=== PATIENT | male | born 1935 | race Caucasian/White ===

== ENCOUNTER → 2019-01-06 | Emergency (ER) | payer MEDICARE, OTHER ==
[~2019-01-06] MED LIST: CHOL10005 PO; GABA-549 PO; HYDR-385 PO; MELA5TAB3 PO; PANT40TA65 PO; ROPI3TAB18 PO; SODI650T7 PO; TRAM-420 PO; WARF5TAB23 PO; oxyCODON/ACET (*)5/325MG (CII) 1 TAB TAB PO ONE
--- NOTE | 2019-01-06 10:25 | ER Report ---
History and Physical Time Seen By MD: 10:25 HPI/ROS CHIEF COMPLAINT: Right posterior rib pain HISTORY OF PRESENT ILLNESS: Patient is an 83-year-old male here with complaints of posterior right-sided rib pain status post fall on Tuesday. Patient was concerned because pain has not been improving. Patient also reports pain with taking a deep breath below the right scapular border. Patient denies further injuries at this time. Patient does have a history of multiple fractures and surgeries to the spine. Patient is hemodynamically stable at time of evaluation. REVIEW OF SYSTEMS: Constitutional: No fever, no chills. Eyes: No discharge. ENT: No sore throat. Cardiovascular: No chest pain, no palpitations. Respiratory: No cough, no shortness of breath. Gastrointestinal: No abdominal pain, no vomiting. Genitourinary: No hematuria. Musculoskeletal: Right-sided posterior rib pain below scapular border Skin: No rashes. Neurological: No headache. Allergies: Coded Allergies: oxycodone (Verified Allergy, Intermediate, Itching, 01/06/19) Home Meds Active Scripts Tramadol Hcl (TRAMADOL HCL) 50 Mg Tablet, 50 MG PO Q6H PRN for PAIN, #20 TAB 0 Refills Prov:AMADOR CORDOVA DO 01/06/19 Constitutional Vital Sign - Last 24 Hours 01/06/19 01/06/19 01/06/19 01/06/19 10:00 10:01 10:15 10:30 Pulse ??? 87 79 B/P (MAP) 151/85 (107) 136/79 (98) Pulse Ox 85 92 01/06/19 01/06/19 10:55 11:00 B/P (MAP) 121/78 (92) 140/93 (109) Pulse Ox 91 Physical Exam General Appearance: The patient is alert, has no immediate need for airway protection and no signs of toxicity. Uncomfortable appearing Eyes: Pupils equal and round no pallor or injection. ENT, Mouth: Mucous membranes are moist. Respiratory: There are no retractions, lungs are clear to auscultation. Cardiovascular: Regular rate and rhythm. Gastrointestinal: Abdomen is soft and non tender, no masses, bowel sounds normal. Neurological: No focal neurological deficits Skin: Warm and dry, no rashes. Musculoskeletal: Neck is supple non tender.+ Tenderness on palpation of the right posterior ribs lower right scapula border Extremities are nontender, nonswollen and have full range of motion. DIFFERENTIAL DIAGNOSIS: After history and physical exam differential diagnosis was considered for fracture, contusion, dislocation Medical Decision Making Data Points Result Diagram: 01/06/19 1125 01/06/19 1125 Laboratory Hematology Test 01/06/19 11:25 Red Blood Count 4.81 M/uL (4.00-5.60) Mean Corpuscular Volume 86.6 fL (80.0-96.0) Mean Corpuscular Hemoglobin 28.1 pg (26.0-33.0) Mean Corpuscular Hemoglobin Concent 32.4 g/dL (32.0-36.0) Red Cell Distribution Width 14.6 % (11.5-14.5) Mean Platelet Volume 8.1 fL (7.2-11.1) Neutrophils (%) (Auto) 72.2 % (39.4-72.5) Lymphocytes (%) (Auto) 11.9 % (17.6-49.6) Monocytes (%) (Auto) 4.7 % (4.1-12.4) Eosinophils (%) (Auto) 10.5 % (0.4-6.7) Basophils (%) (Auto) 0.7 % (0.3-1.4) Nucleated RBC Relative Count (auto) 0.1 /100WBC Neutrophils # (Auto) 8.7 K/uL (2.0-7.4) Lymphocytes # (Auto) 1.4 K/uL (1.3-3.6) Monocytes # (Auto) 0.6 K/uL (0.3-1.0) Eosinophils # (Auto) 1.3 K/uL (0.0-0.5) Basophils # (Auto) 0.1 K/uL (0.0-0.1) Nucleated RBC Absolute Count (auto) 0.01 K/uL Peripheral Blood Smear Yes Y/N Prothrombin Time 13.5 seconds (12.0-14.4) Prothromb Time International Ratio 1.03 Activated Partial Thromboplast Time 30 seconds (23-35) Sodium Level 140 mmol/L (137-145) Potassium Level 5.0 mmol/L (3.5-5.0) Chloride Level 109 mmol/L (98-107) Carbon Dioxide Level 19 mmol/L (22-30) Blood Urea Nitrogen 24 mg/dl (9-21) Creatinine 2.20 mg/dl (0.66-1.25) Glomerular Filtration Rate Calc 28.9 Random Glucose 138 mg/dl (75-110) Calcium Level 9.8 mg/dl (8.4-10.2) Total Bilirubin 0.7 mg/dl (0.2-1.3) Aspartate Amino Transf (AST/SGOT) 27 U/L (0-35) Alanine Aminotransferase (ALT/SGPT) 27 U/L (0-56) Alkaline Phosphatase 190 U/L (0-126) Total Protein 7.8 g/dl (6.3-8.2) Albumin 4.1 g/dl (3.5-5.0) Chemistry Test 01/06/19 11:25 White Blood Count 12.0 k/uL (4.5-11.0) Red Blood Count 4.81 M/uL (4.00-5.60) Hemoglobin 13.5 g/dL (14.0-18.0) Hematocrit 41.6 % (42.0-52.0) Mean Corpuscular Volume 86.6 fL (80.0-96.0) Mean Corpuscular Hemoglobin 28.1 pg (26.0-33.0) Mean Corpuscular Hemoglobin Concent 32.4 g/dL (32.0-36.0) Red Cell Distribution Width 14.6 % (11.5-14.5) Platelet Count 459 K/uL (150-450) Mean Platelet Volume 8.1 fL (7.2-11.1) Neutrophils (%) (Auto) 72.2 % (39.4-72.5) Lymphocytes (%) (Auto) 11.9 % (17.6-49.6) Monocytes (%) (Auto) 4.7 % (4.1-12.4) Eosinophils (%) (Auto) 10.5 % (0.4-6.7) Basophils (%) (Auto) 0.7 % (0.3-1.4) Nucleated RBC Relative Count (auto) 0.1 /100WBC Neutrophils # (Auto) 8.7 K/uL (2.0-7.4) Lymphocytes # (Auto) 1.4 K/uL (1.3-3.6) Monocytes # (Auto) 0.6 K/uL (0.3-1.0) Eosinophils # (Auto) 1.3 K/uL (0.0-0.5) Basophils # (Auto) 0.1 K/uL (0.0-0.1) Nucleated RBC Absolute Count (auto) 0.01 K/uL Peripheral Blood Smear Yes Y/N Prothrombin Time 13.5 seconds (12.0-14.4) Prothromb Time International Ratio 1.03 Activated Partial Thromboplast Time 30 seconds (23-35) Glomerular Filtration Rate Calc 28.9 Calcium Level 9.8 mg/dl (8.4-10.2) Total Bilirubin 0.7 mg/dl (0.2-1.3) Aspartate Amino Transf (AST/SGOT) 27 U/L (0-35) Alanine Aminotransferase (ALT/SGPT) 27 U/L (0-56) Alkaline Phosphatase 190 U/L (0-126) Total Protein 7.8 g/dl (6.3-8.2) Albumin 4.1 g/dl (3.5-5.0) Coagulation Test 01/06/19 11:25 Prothrombin Time 13.5 seconds Prothromb Time International Ratio 1.03 Activated Partial Thromboplast Time 30 seconds EKG/Imaging Imaging PATIENT NAME: Polo Villarreal : 1935 MR: [id number] V: [id number] EXAM DATE: ORDERING PHYSICIAN: AMADOR CORDOVA TECHNOLOGIST: Location: [facility] Patient: Polo Villarreal : 1935 Visit/Account:[id number] Date of Sevice: 01/06/2019 CT abdomen and pelvis without contrast Indication: Fall. Comparison: None Available. Technique: Axial CT images are obtained through the abdomen and pelvis. Reformatted coronal and sagittal images were reviewed. IV contrast was not admin istered. One of the following dose optimization techniques was utilized in the performance of this exam: automated exposure control; adjustment of the mA and/or kV according to the patient's size; or use of an iterative reconstruction technique. Specific details can be referenced in the facility's radiology CT exam operational policy. Findings: Lower lung miramontes: Small right pleural effusion with minimal atelectasis. Otherwise clear. Evaluation of the solid organs of the abdomen is limited without IV contrast. Liver: No focal parenchymal abnormality of the liver. Biliary: Gallbladder appears unremarkable as well as the intra and extra hepatic biliary system. Pancreas: Diffuse fatty infiltration without focal abnormality. Spleen: Normal appearance. Adrenal glands: Unremarkable. Kidneys / retroperitoneum: The right kidney is not visualized. The left kidney does show 3 small stones in collecting system, largest measuring 3 mm. No hydronephrosis. The inferior aspect of the left kidney does show a 1.4 cm cyst. No other discrete lesion. Bowel / peritoneum / mesenteries: Sigmoid diverticula without pericolonic inflammation. The colon shows no other focal normality. The appendix is not definitely visualized. Small bowel shows no focal normality or obstruction. The stomach is unremarkable. No free air, free fluid, fluid collections or areas of inflammation. Lymph node assessment: No pathologic adenopathy identified. Pelvic structures: Prostate is enlarged and homogeneous. No focal normality. This does cause impression to the urinary bladder. The urinary bladder shows no other focal abnormality. The remaining pelvic structures visualized within normal limits. Vessels: Mild atherosclerotic calcifications seen throughout a nonaneurysmal abdominal aorta and branches. Musculoskeletal / Body wall: No acute or aggressive osseous abnormality. Postsurgical fusion changes to the thoracal lumbar spine without sequelae. There is diffuse degenerative changes. There is anterior spinal listhesis of L3 over L4 of 8 mm. Right hip arthroplasty without sequelae. Degenerative change seen in the left hip. The right medial pectineus muscle does show a small lipoma measuring 6.3 x 1.9 cm without any soft tissue nodule. IMPRESSION: 1. No acute intra-abdominal abnormality identified. No indication of traumatic injury. 2. Sigmoid diverticulosis without radiographic indication of diverticulitis. 3. Nonobstructing left renal calculi. The right kidney is not visualized. 4. Small right pleural effusion with minimal atelectasis. 5. Other chronic findings as above. FACILITY: [facility] PATIENT NAME: Polo Villarreal : 1935 MR: [id number] V: [id number] EXAM DATE: ORDERING PHYSICIAN: AMADOR CORDOVA TECHNOLOGIST: Location: [facility] Patient: Polo Villarreal : 1935 Visit/Account:[id number] Date of Sevice: 01/06/2019 CT chest without contrast Indication: Fall. Comparison: None available Technique: Axial CT images are obtained through the chest without administration of IV contrast. One of the following dose optimization techniques was utilized in the performance of this exam: Automated exposure control; adjustment of the mA and/or kV according to the patient's size; or use of an iterative reconstruction technique. Specific details can be referenced in the facility's radiology CT exam operational policy.Reformatted coronal and sagittal images were reviewed. Findings: Heart is normal size without pericardial effusion. Mild coronary artery calcifications. Aorta shows atherosclerotic calcific changes. The ascending aorta is upper limits normal size of 4 cm. No discrete aneurysm. The pulmonary arteries are grossly normal. There is no mediastinal hematoma and there is no pathologic mediastinal adenopathy seen. Lungs show small right pleural effusion with minimal atelectasis. No left effusion. Mild scarring seen in both lungs. No consolidations or pneumothorax. No discrete nodules or focal interstitial opacities. Airways are clear. The bony structures show no acute fractures. No discrete or displaced rib fractures. Vertebral bodies show no compressions. Prominent degenerative change seen in the lower thoracic spine. Postsurgical changes to the thoracal lumbar spine without sequelae. No aggressive bony lesions. The chest wall shows no enlarged axillary lymph nodes or masses. Limited views of the upper abdomen are unremarkable. IMPRESSION: 1. There is a small right pleural effusion with minimal atelectasis. No discrete rib fracture. No focal infiltrate. 2. Other chronic findings as above. ED Course/Re-evaluation ED Course Patient is an 83-year-old male with complaints of right posterior back and rib pain status post fall on Tuesday. Labs are unremarkable. CT imaging of the chest abdomen pelvis was completed due to patient's history of fall, prior history of surgical interventions in the back. No acute fractures were identified. Patient was identified to have atelectasis in the right lung so patient was educated regarding using incentive spirometer to avoid pneumonia d evelopment. Patient was given tramadol for analgesia. Patient was stable at time of discharge. Patient was also noted to have a creatinine of 2.2 and a history of a prior nephrectomy. There were no recent labs to compare to so patient was advised to drink plenty of water as he admitted to not keeping up with his fluid status. Patient was advised to follow-up with his PCP in the next 24-48 hours in order to compare and repeat labs. Return precautions were provided. Patient was stable at time of discharge. Decision to Disposition Date: Jan 06, 2019 Decision to Disposition Time: 13:02 Depart Departure Latest Vital Signs Vital Signs Date Time Temp Pulse Resp B/P (MAP) Pulse Ox O2 Delivery O2 Flow Rate FiO2 01/06/19 11:00 140/93 (109) 91 01/06/19 10:30 79 Impression: Primary Impression: Rib contusion Additional Impressions: Renal dysfunction ATELECTASIS Condition: Improved Disposition: HOME OR SELF-CARE New Scripts Tramadol Hcl (TRAMADOL HCL) 50 Mg Tablet 50 MG PO Q6H PRN for PAIN, #20 TAB 0 Refills Prov: AMADOR CORDOVA DO 01/06/19 Patient Instructions: Contusion in Adults (ED), Impaired Kidney Function (ED) Additional Instructions: Please drink plenty of water. Please avoid renal toxic medications including Advil, ibuprofen, naproxen, Aleve as these medications will worsen your kidney function. Please use your incenses from under as your shown here today. You need to follow-up in the next 24-48 hours with your family doctor in order to discuss your kidney function and compare to prior labs. Please return immediately if you develop worsening pain, difficulty breathing, chest pains, decreased urine output, dark urine, fevers. You may take tramadol 1 tablet every 6-8 hours as needed for breakthrough pain control. Problem Qualifiers AMADOR CORDOVA DO Jan 06, 2019 10:25
[2019-01-06 11:36] LABS: PLATELET COUNT, AUTOMATED 459 K/uL (150-450)
[2019-01-06 11:41] LABS: INR 1.03
--- NOTE | 2019-01-06 12:16 | RADIOLOGY IMAGING REPORT ---
FACILITY: [facility] [place] PATIENT NAME: Polo Villarreal : 1935 MR: [id number] V: [id number] EXAM DATE: ORDERING PHYSICIAN: AMADOR CORDOVA TECHNOLOGIST: Location: Patient: Polo Villarreal : 1935 Visit/Account:[id number] Date of Sevice: 01/06/2019 CT chest without contrast Indication: Fall. Comparison: None available Technique: Axial CT images are obtained through the chest without administration of IV contrast. One of the following dose optimization techniques was utilized in the performance of this exam: Autom ated exposure control; adjustment of the mA and/or kV according to the patient's size; or use of an i terative reconstruction technique. Specific details can be referenced in the facility's radiology C T exam operational policy.Reformatted coronal and sagittal images were reviewed. Findings: Heart is normal size without pericardial effusion. Mild coronary artery calcifications. Aorta shows a therosclerotic calcific changes. The ascending aorta is upper limits normal size of 4 cm. No discrete aneurysm. The pulmonary arteries are grossly normal. There is no mediastinal hematoma and there is no pathologic mediastinal adenopathy seen. Lungs show small right pleural effusion with minimal atelectasis. No left effusion. Mild scarring see n in both lungs. No consolidations or pneumothorax. No discrete nodules or focal interstitial opaciti es. Airways are clear. The bony structures show no acute fractures. No discrete or displaced rib fractures. Vertebral bodies show no compressions. Prominent degenerative change seen in the lower thoracic spine. Postsurgical c hanges to the thoracal lumbar spine without sequelae. No aggressive bony lesions. The chest wall show s no enlarged axillary lymph nodes or masses. Limited views of the upper abdomen are unremarkable. IMPRESSION: 1. There is a small right pleural effusion with minimal atelectasis. No discrete rib fracture. No foc al infiltrate. 2. Other chronic findings as above. Report Dictated By: Walter Glaser at 01/06/2019 12:03 PM Report E-Signed By: Walter Glaser at 01/06/2019 12:11 PM WSN:[id number]
--- NOTE | 2019-01-06 12:47 | RADIOLOGY IMAGING REPORT ---
FACILITY: [facility] [place] PATIENT NAME: Polo Villarreal : 1935 MR: [id number] V: [id number] EXAM DATE: ORDERING PHYSICIAN: AMADOR CORDOVA TECHNOLOGIST: Location: [facility] [place] Patient: Polo Villarreal : 1935 Visit/Account:[id number] Date of Sevice: 01/06/2019 CT abdomen and pelvis without contrast Indication: Fall. Comparison: None Available. Technique: Axial CT images are obtained through the abdomen and pelvis. Reformatted coronal and sagit mitzi images were reviewed. IV contrast was not administered. One of the following dose optimization techniques was utilized in the performance of this exam: auto mated exposure control; adjustment of the mA and/or kV according to the patient's size; or use of an iterative reconstruction technique. Specific details can be referenced in the facility's radiology C T exam operational policy. Findings: Lower lung miramontes: Small right pleural effusion with minimal atelectasis. Otherwise clear. Evaluation of the solid organs of the abdomen is limited without IV contrast. Liver: No focal parenchymal abnormality of the liver. Biliary: Gallbladder appears unremarkable as well as the intra and extra hepatic biliary system. Pancreas: Diffuse fatty infiltration without focal abnormality. Spleen: Normal appearance. Adrenal glands: Unremarkable. Kidneys / retroperitoneum: The right kidney is not visualized. The left kidney does show 3 small ston es in collecting system, largest measuring 3 mm. No hydronephrosis. The inferior aspect of the left k idney does show a 1.4 cm cyst. No other discrete lesion. Bowel / peritoneum / mesenteries: Sigmoid diverticula without pericolonic inflammation. The colon ashutosh ws no other focal normality. The appendix is not definitely visualized. Small bowel shows no focal no rmality or obstruction. The stomach is unremarkable. No free air, free fluid, fluid collections or areas of inflammation. Lymph node assessment: No pathologic adenopathy identified. Pelvic structures: Prostate is enlarged and homogeneous. No focal normality. This does cause impre ssion to the urinary bladder. The urinary bladder shows no other focal abnormality. The remaining pel jemal structures visualized within normal limits. Vessels: Mild atherosclerotic calcifications seen throughout a nonaneurysmal abdominal aorta and bran ches. Musculoskeletal / Body wall: No acute or aggressive osseous abnormality. Postsurgical fusion changes to the thoracal lumbar spine without sequelae. There is diffuse degenerative changes. There is anteri or spinal listhesis of L3 over L4 of 8 mm. Right hip arthroplasty without sequelae. Degenerative manning ge seen in the left hip. The right medial pectineus muscle does show a small lipoma measuring 6.3 x 1.9 cm without any soft ti ssue nodule. IMPRESSION: 1. No acute intra-abdominal abnormality identified. No indication of traumatic injury. 2. Sigmoid diverticulosis without radiographic indication of diverticulitis. 3. Nonobstructing left renal calculi. The right kidney is not visualized. 4. Small right pleural effusion with minimal atelectasis. 5. Other chronic findings as above. Report Dictated By: Walter Glaser at 01/06/2019 12:32 PM Report E-Signed By: Walter Glaser at 01/06/2019 12:42 PM WSN:[id number]
[2019-01-06 13:00] VITALS: BP 132/79
== END ==
LOC: ER 10:35
DX: R07.81 Pleurodynia (principal); N28.9 Disorder of kidney and ureter, unspecified; J98.11 Atelectasis; J90 Pleural effusion, not elsewhere classified
CPT/HCPCS: 71250; 74176; 85025; 85610; 85730; A9270; 82040; 82247; 82310; 82374; 82435; 82565; 82947; 84075; 84132; 84155; 84295; 84450; 84460; 84520; 99284

== ENCOUNTER 2019-02-12 20:09 | Observation (INO) | payer MEDICARE, OTHER ==
[~2019-02-12] VITALS: Ht 193 cm; Wt 119.3 kg
[~2019-02-12 20:09] MED LIST changes: -ASPI81TA94 PO; -GABA-488 PO
--- NOTE | 2019-02-12 20:16 | ER Report ---
History and Physical Time Seen By MD: 20:11 HPI/ROS CHIEF COMPLAINT: Possible stroke, weakness, confusion, slurred speech HISTORY OF PRESENT ILLNESS: This is an 83-year-old male. At home, his son noted that he was slurring his words and having some confusion. Last time the patient was normal was at about 1800 hrs. patient's speech has improved but is not quite at baseline now. The confusion seems to be better. He does have some right-sided rib pain from recent fall and contusion, and he has chronic pain in the right shoulder and right hip. Patient states that the right arm and right hip do seem to be heavier than usual and more difficulty moving them. He denies having any recent illness, cough, shortness of breath, fevers or chills. He did take one of his hydrocodone earlier today for his rib pain. He has been on warfarin but recently discontinued this at the recommendation of his primary care doctor. 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 He has been eating and drinking today but may be a little bit less intake. Denies any problems with urination but has had a little bit of loose stools today. Denies any abdominal pain. Denies any vomiting but has had occasional nausea. He denies headache, he is not dizzy but feels generally weak. He needs to use reading glasses but otherwise has no problems with his vision at this time. REVIEW OF SYSTEMS: As above. Allergies: Coded Allergies: oxycodone (Verified Allergy, Intermediate, Itching, 02/12/19) Home Meds Active Scripts Tramadol Hcl (TRAMADOL HCL) 50 Mg Tablet, 50 MG PO Q6H PRN for PAIN, #20 TAB 0 Refills Prov:AMADOR CORDOVA DO 01/06/19 Reported Medications Aspirin (ASPIRIN) 81 Mg Tab.chew, 81 MG PO QDAY, TAB.CHEW 02/12/19 Pantoprazole Sodium (PANTOPRAZOLE SODIUM) 40 Mg Tablet.dr, 40 MG PO QDAY, TAB.SR 01/06/19 Melatonin (MELATONIN) 5 Mg Tablet, 5 MG PO HS 01/06/19 Gabapentin (GABAPENTIN) 300 Mg Capsule, 200 MG PO BID, CAPSULE 01/06/19 Cholecalciferol (Vitamin D3) (VITAMIN D3) 1,000 Unit Tablet, 2000 UNIT PO DAILY, TAB 01/06/19 Sodium Bicarbonate (SODIUM BICARBONATE) 650 Mg Tablet, 1300 MG PO BID 01/06/19 Ropinirole Hcl (ROPINIROLE HCL) 3 Mg Tablet, 3 MG PO TID 01/06/19 Hydrocodone Bit/Acetaminophen (HYDROCODON-ACETAMINOPHEN 5-325) 1 Each Tablet, 1- 2 EACH PO Q4H PRN for PAIN, TAB 01/06/19 Discontinued Reported Medications Warfarin Sodium (WARFARIN SODIUM) 5 Mg Tablet, 5 MG PO QDAY, TAB 01/06/19 Reviewed Nurses Notes: Yes Hx Substance Use Disorder: No Hx Alcohol Use: No Constitutional Vital Sign - Last 24 Hours 02/12/19 02/12/19 02/12/19 02/12/19 20:12 20:30 20:34 20:34 Temp 97.9 Pulse 84 79 Resp 18 15 B/P (MAP) 146/99 122/75 (91) Pulse Ox 87 O2 Delivery Room Air O2 Flow Rate 2.0 02/12/19 02/12/19 02/12/19 02/12/19 20:39 20:44 20:49 20:54 Pulse 78 77 78 82 Resp 16 31 34 20 Pulse Ox 99 96 96 96 02/12/19 02/12/19 02/12/19 02/12/19 20:59 21:00 21:04 21:09 Pulse 76 77 75 Resp 24 44 19 B/P (MAP) 141/91 (108) Pulse Ox 97 96 95 02/12/19 02/12/19 02/12/19 02/12/19 21:14 21:19 21:24 21:29 Pulse 78 76 76 80 Resp 23 24 22 27 Pulse Ox 93 92 93 92 02/12/19 02/12/19 02/12/19 02/12/19 21:30 21:34 21:39 21:44 Pulse 73 71 74 Resp 22 24 28 B/P (MAP) 120/113 (115) Pulse Ox 91 92 94 02/12/19 02/12/19 02/12/19 02/12/19 21:49 21:54 21:59 22:49 Pulse 74 75 72 71 Resp 19 28 23 Pulse Ox 94 95 95 94 02/12/19 02/12/19 02/12/19 02/12/19 23:00 23:04 23:19 23:30 Pulse 70 70 B/P (MAP) 148/93 (111) 144/84 (104) Pulse Ox 93 95 02/12/19 02/12/19 02/13/19 02/13/19 23:35 23:50 00:00 00:05 Pulse 71 70 70 B/P (MAP) 145/101 (116) Pulse Ox 94 94 93 Intake and Output 02/12/19 02/12/19 02/13/19 15:02 23:02 07:02 Intake Total 1000 ml Balance 1000 ml Physical Exam General Appearance: The patient is alert. No immediate need for airway protection. No acute distress. Non-toxic in appearance. Eyes: Pupils are equal, round. Reactive to light. No pallor, injection or icterus. Extraocular movements are intact. Normal visual miramontes by direct confrontation. No nystagmus. ENT: Mucous membranes are a little dry. Normal oral mucosa. Posterior oropharynx is normal. Neck: Supple and non tender. No lymphadenopathy. Respiratory: Lungs are clear to auscultation. Cardiovascular: Regular rate and rhythm. No murmurs, gallops or rubs. Normal capillary refill. Has some edema bilateral lower extremities. Gastrointestinal: Abdomen is soft and non tender. Nondistended. Normal active bowel sounds. Neurological: Alert and oriented x3. Cranial nerves with eye exam as noted above, midline tongue, symmetric palate elevation, no facial weakness noted, normal facial sensation. He does have a little bit of slurring of his words but no aphasia. Extremities are difficult to evaluate. He feels like his right arm and right leg or heavy but he also has chronic problems with the right shoulder and right hip limiting mobility. He seems to be able to move his hand and wrist without major problems so he has history of injury was swelling to the right hand making this a little difficult for him. No deficits of sensation in the left arm and leg. Some decreased sensation in the right leg. He is unable to perform finger to nose or heel to easley with the right leg but can do so without major difficulty using the left arm and the left leg. Skin: Warm and dry. Musculoskeletal: Tenderness in the right ribs from recent contusion. Some pain in the right shoulder which is chronic. Some pain in the right hip which is chronic. I do not elicit any other pain at this time. No tenderness in palpation of the cervical, thoracic and lumbar spine. DIFFERENTIAL DIAGNOSIS: After history and physical exam, differential diagnosis was considered for patient with what appears to be stroke versus TIA. NIH stroke scale was done by myself and then by the neurologist utilizing the tele-stroke. By stroke scale scored and 8 although a lot of deficits can be explained by his chronic deficits in the right arm and right leg. I gave him 2 points for weakness right arm, 2 points for weakness right leg, 1 point for sensation right leg, 1 point for ataxia on the right side, and 1 point for dysarthria. The neurologist on Telestroke had improvement in these areas and felt his deficits were mainly related to pain. Concern at this point was mainly for TIA. Recommended workup in this direction. Patient would benefit from MRI b rain, CTA, and echocardiogram for further workup. Initial non-contrast head CT is negative. Medical Decision Making Data Points Result Diagram: 02/12/19203302/12/192033 Laboratory Hematology Test 02/12/19 20:34 White Blood Count 8.7 k/uL (4.5-11.0) Red Blood Count 4.93 M/uL (4.00-5.60) Hemoglobin 13.6 g/dL (14.0-18.0) L Hematocrit 40.9 % (42.0-52.0) L Mean Corpuscular Volume 83.0 fL (80.0-96.0) Mean Corpuscular Hemoglobin 27.5 pg (26.0-33.0) Mean Corpuscular Hemoglobin Concent 33.2 g/dL (32.0-36.0) Red Cell Distribution Width 15.1 % (11.5-14.5) H Platelet Count 424 K/uL (150-450) Mean Platelet Volume 8.0 fL (7.2-11.1) Neutrophils (%) (Auto) 62.7 % (39.4-72.5) Lymphocytes (%) (Auto) 20.5 % (17.6-49.6) Monocytes (%) (Auto) 7.7 % (4.1-12.4) Eosinophils (%) (Auto) 8.1 % (0.4-6.7) H Basophils (%) (Auto) 1.0 % (0.3-1.4) Nucleated RBC Relative Count (auto) 0.0 /100WBC Neutrophils # (Auto) 5.5 K/uL (2.0-7.4) Lymphocytes # (Auto) 1.8 K/uL (1.3-3.6) Monocytes # (Auto) 0.7 K/uL (0.3-1.0) Eosinophils # (Auto) 0.7 K/uL (0.0-0.5) H Basophils # (Auto) 0.1 K/uL (0.0-0.1) Nucleated RBC Absolute Count (auto) 0.00 K/uL Chemistry Test 02/12/19 20:34 Sodium Level 140 mmol/L (137-145) Potassium Level 4.3 mmol/L (3.5-5.0) Chloride Level 109 mmol/L (98-107) Carbon Dioxide Level 19 mmol/L (22-30) Blood Urea Nitrogen 35 mg/dl (9-21) Creatinine 2.60 mg/dl (0.66-1.25) Glomerular Filtration Rate Calc 23.8 Random Glucose 132 mg/dl (75-110) Calcium Level 9.7 mg/dl (8.4-10.2) Total Bilirubin 0.6 mg/dl (0.2-1.3) Aspartate Amino Transf (AST/SGOT) 25 U/L (0-35) Alanine Aminotransferase (ALT/SGPT) 24 U/L (0-56) Alkaline Phosphatase 169 U/L (0-126) Troponin I 0.020 ng/ml Total Protein 7.5 g/dl (6.3-8.2) Albumin 4.0 g/dl (3.5-5.0) Coagulation Test 02/12/19 20:34 Prothrombin Time 13.7 seconds (12.0-14.4) Prothromb Time International Ratio 1.05 Activated Partial Thromboplast Time 31 seconds (23-35) EKG/Imaging EKG Interpretation 12 lead EKG: Rhythm: Normal sinus rhythm, rate 77 Bee: normal QRS: Right bundle branch block, left anterior fascicular block ST segments: No signs of ischemia on ST segments, nonspecific T changes Imaging EXAMINATION: CT head without IV contrast HISTORY: Confusion. Slurred words. Stroke alert. TECHNIQUE: Axial CT images of the head were obtained from the vertex to the skull base without IV contrast, with coronal and sagittal 2D reconstructed images. One of the following dose optimization techniques was utilized in the performa nce of this exam: Automated exposure control; adjustment of the mA and/or kV according to the patient's size; or use of an iterative reconstruction technique. Specific details can be referenced in the facility's radiology CT exam operational policy. COMPARISON: None. FINDINGS: There is moderate generalized parenchymal atrophy, with mild patchy low attenuation in the deep white matter compatible with chronic small vessel ischemic change. Intracranial vascular calcifications. Prominent perivascular space versus less likely old lacunar infarct in the inferior right basal ganglia. No CT evidence of intracranial hemorrhage, mass lesion, or acute infarct. No midline shift or extra-axial fluid collections. Jerez-white differentiation is maintained. The calvarium is intact. Mild mucosal thickening throughout the paranasal sinuses. The mastoid air cells are unopacified. IMPRESSION: 1. No CT evidence of acute intracranial pathology. 2. Moderate parenchymal atrophy with chronic small vessel ischemic change. These noncontrast head CT results were discussed with CATHY MAE at 02/12/2019 8:53 PM. Report Dictated By: Asael Portillo MD at 02/12/2019 8:45 PM EXAMINATION: Portable AP Chest HISTORY: Confusion. COMPARISON: None. FINDINGS: The lungs are grossly clear. No focal consolidation or pleural effusion. No pneumothorax. Normal cardiomediastinal silhouette, with normal heart size and pulmonary vascularity. Aortic calcification. No acute osseous findings. Partially visualized left shoulder arthroplasty. Posterior fixation hardware along the thoracolumbar spine. IMPRESSION: No evidence of acute cardiopulmonary disease. Report Dictated By: Asael Portillo MD at 02/12/2019 10:12 PM EXAMINATION: MRI Brain without IV contrast 02/12/2019 9:16 PM HISTORY: tia, right weakness, slurred speech TECHNIQUE: Multi-planar, multi-sequence brain MRI was performed without IV contrast administration. COMPARISON STUDIES: none FINDINGS: Ventricles / sulci / fissures: Prominent but within normal range for age. Masses / hemorrhage / midline shift: negative White matter: Mild periventricular and white matter foci of FLAIR hyperintensity consistent with age-appropriate small vessel ischemic changes. Jerez-white differentiation: negative Extra-axial spaces: negative Calvarium: negative Vascular structures: negative Sagittal midline structures: negative Paranasal sinuses / mastoid air cells: Mild paranasal sinus changes which are potentially chronic. Orbits: There appears to been bilateral lens or cataract surgery. Visualized upper neck: Metal artifact behind the upper cervical spine. IMPRESSION: Unremarkable unenhanced MRI of the brain for age. No evidence of acute mass, stroke, or hemorrhage. Report Dictated By: Charly Grider MD at 02/12/2019 10:52 PM ED Course/Re-evaluation Clinical Indication for ER IV: Hydration, IV Access ED Course Patient admitted to exam room, vital signs and blood sugar taken. Sent to CT scan for stat noncontrast head CT. Return to the room and IVs were started. I did my NIH stroke scale as noted above. Tele-stroke was done and neurology did an evaluation. Concern for TIA rather than stroke. MRI brain noncontrast ordered. Based on renal function, we are unable to do a CT angiogram at this time. MRI done which was negative for acute disease. Discussed the case with our hospitalist, who came to the ER to evaluate the patient. The patient will be ad mitted. Likely will need to do carotid Doppler ultrasound and echocardiogram as with his one kidney and poor kidney function he may not be able to tolerate any contrast I either with CT scan or MRI. Decision to Disposition Date: Feb 13, 2019 Decision to Disposition Time: 23:34 Critical Care Time I spent a total of 90 minutes of critical care time in obtaining history, performing a physical exam, bedside monitoring of interventions, collecting and interpreting tests and discussion with consultants but not including time spent performing procedures. Depart Departure Latest Vital Signs Vital Signs Date Time Temp Pulse Resp B/P (MAP) Pulse Ox O2 Delivery O2 Flow Rate FiO2 02/13/19 00:05 70 93 02/13/19 00:00 145/101 (116) 02/12/19 21:59 23 02/12/19 20:34 2.0 02/12/19 20:12 97.9 Room Air Impression: Primary Impression: TIA (transient ischemic attack) Condition: Improved Disposition: Admitted from ER CATHY MAE MD Feb 12, 2019 20:16
[2019-02-12 20:47] LABS: PLATELET COUNT, AUTOMATED 424 K/uL (150-450)
--- NOTE | 2019-02-12 21:02 | RADIOLOGY IMAGING REPORT ---
FACILITY: [facility] [place] PATIENT NAME: Polo Villarreal : 1935 MR: [id number] V: [id number] EXAM DATE: ORDERING PHYSICIAN: CATHY MAE TECHNOLOGIST: Location: [facility] Patient: Polo Villarreal : 1935 Visit/Account:[id number] Date of Sevice: 02/12/2019 EXAMINATION: CT head without IV contrast HISTORY: Confusion. Slurred words. Stroke alert. TECHNIQUE: Axial CT images of the head were obtained from the vertex to the skull base without IV c ontrast, with coronal and sagittal 2D reconstructed images. One of the following dose optimization techniques was utilized in the performance of this exam: Autom ated exposure control; adjustment of the mA and/or kV according to the patient's size; or use of an i terative reconstruction technique. Specific details can be referenced in the facility's radiology C T exam operational policy. COMPARISON: None. FINDINGS: There is moderate generalized parenchymal atrophy, with mild patchy low attenuation in the deep white matter compatible with chronic small vessel ischemic change. Intracranial vascular calcifications. P rominent perivascular space versus less likely old lacunar infarct in the inferior right basal gangli a. No CT evidence of intracranial hemorrhage, mass lesion, or acute infarct. No midline shift or extra-a xial fluid collections. Jerez-white differentiation is maintained. The calvarium is intact. Mild mucosal thickening throughout the paranasal sinuses. The mastoid air ce lls are unopacified. IMPRESSION: 1. No CT evidence of acute intracranial pathology. 2. Moderate parenchymal atrophy with chronic small vessel ischemic change. These noncontrast head CT results were discussed with CATHY MAE at 02/12/2019 8:53 PM. Report Dictated By: Asael Portillo MD at 02/12/2019 8:45 PM Report E-Signed By: Asael Portillo MD at 02/12/2019 8:55 PM WSN:[id number]
[2019-02-12] MEDS ORDERED: ASPI81TA94 PO (21:06)
[2019-02-12 21:09] LABS: INR 1.05
--- NOTE | 2019-02-12 21:15 | EKG ---
FACILITY: [facility] PATIENT NAME: KELLEY FAIRBANKS : [id number] MR: [id number] V: [id number] EXAM DATE: ORDERING PHYSICIAN: CATHY MAE TECHNOLOGIST: MAGY Test Reason : NEURO Blood Pressure : / mmHG Vent. Rate : 077 BPM Atrial Rate : 077 BPM P-R Int : 206 ms QRS Dur : 164 ms QT Int : 420 ms P-R-T Axes : 042 -86 -03 degrees QTc Int : 475 ms Normal sinus rhythm Right bundle branch block Left anterior fascicular block Bifascicular block Septal infarct , age undetermined Abnormal ECG No previous ECGs available Confirmed by David Daley ([id number]) on 02/12/2019 9:27:52 PM Referred By: Confirmed By:David Patterson
[2019-02-12] MEDS ORDERED: NS(*) 0.9% 1000 ML BAG 1,000 ML IV ONE (21:25)
[2019-02-12] MEDS ORDERED: IOPAMIDOL 76% 100 ML INFUS BTL 0 ML ONE (21:40)
[2019-02-12] MEDS ORDERED: NS(*) 0.9% 50 ML BAG 0 ML ONE (21:40)
--- NOTE | 2019-02-12 22:19 | RADIOLOGY IMAGING REPORT ---
FACILITY: [facility] PATIENT NAME: Polo Villarreal : 1935 MR: [id number] V: [id number] EXAM DATE: ORDERING PHYSICIAN: CATHY MAE TECHNOLOGIST: [place] [facility] [place]: Polo Villarreal : 1935 Visit/Account:[id number] Date of Sevice: 02/12/2019 EXAMINATION: Portable AP Chest HISTORY: Confusion. COMPARISON: None. FINDINGS: The lungs are grossly clear. No focal consolidation or pleural effusion. No pneumothorax. Normal cardiomediastinal silhouette, with normal heart size and pulmonary vascularity. Aortic calcif ication. No acute osseous findings. Partially visualized left shoulder arthroplasty. Posterior fixation hardwa re along the thoracolumbar spine. IMPRESSION: No evidence of acute cardiopulmonary disease. Report Dictated By: Asael Portillo MD at 02/12/2019 10:12 PM Report E-Signed By: Asael Portillo MD at 02/12/2019 10:13 PM WSN:[id number]
[2019-02-12] MEDS ORDERED: fentaNYL CITR 100 MCG/2 ML AMP IVP ONE (22:55)
[2019-02-12] MEDS ORDERED: APAP/HYDROCODONE 325/5 TAB PO ONE (22:55)
--- NOTE | 2019-02-12 23:08 | RADIOLOGY IMAGING REPORT ---
[place] [facility] [place] Polo Villarreal : 1935 MR: [id number] V: [id number] EXAM DATE: ORDERING PHYSICIAN: CATHY MAE TECHNOLOGIST: Location: [facility] Patient: Polo Villarreal : 1935 Visit/Account:[id number] Date of Sevice: 02/12/2019 EXAMINATION: MRI Brain without IV contrast 02/12/2019 9:16 PM HISTORY: tia, right weakness, slurred speech TECHNIQUE: Multi-planar, multi-sequence brain MRI was performed without IV contrast administration. COMPARISON STUDIES: none FINDINGS: Ventricles / sulci / fissures: Prominent but within normal range for age. Masses / hemorrhage / midline shift: negative White matter: Mild periventricular and white matter foci of FLAIR hyperintensity consistent with age- appropriate small vessel ischemic changes. Jerez-white differentiation: negative Extra-axial spaces: negative Calvarium: negative Vascular structures: negative Sagittal midline structures: negative Paranasal sinuses / mastoid air cells: Mild paranasal sinus changes which are potentially chronic. Orbits: There appears to been bilateral lens or cataract surgery. Visualized upper neck: Metal artifact behind the upper cervical spine. IMPRESSION: Unremarkable unenhanced MRI of the brain for age. No evidence of acute mass, stroke, or hemorrhage. Report Dictated By: Charly Grider MD at 02/12/2019 10:52 PM Report E-Signed By: Charly Grider MD at 02/12/2019 11:01 PM WSN:[id number]
[2019-02-13 00:20] VITALS: BP 170/87
[2019-02-13] MEDS ORDERED: ACETAMINOPHEN 325 MG TAB PO PRN (00:25)
[2019-02-13] MEDS ORDERED: FLUSH 10 ML SYR IVP PRN (00:25)
[2019-02-13] MEDS ORDERED: ROSUVASTATIN CALCIUM 10 MG TAB PO ONE (00:45)
--- NOTE | 2019-02-13 00:45 | History & Physical ---
History of Present Illness Chief Complaint slurred speech, confusion History of Present Illness 83M presented after noted to have slurred speech and confusion. PMHx significant for OA, chronic pain, CKD. Last known normal was before 6pm reportedly took narcotic pain medication around 5pm. Family noted increased slurring of speech and mild confusion. Brought to ER where he was evaluated by ER physician and tele-neurologist. Symptoms improved, CT and MRI negative. Recommended for admission to complete TIA/stroke work up. Denies previous episodes, no Hx arrhythmias. History Problems: (1) CKD (chronic kidney disease) Status: Chronic (2) OA (osteoarthritis) Status: Chronic (3) Chronic pain Status: Chronic Home Meds Active Scripts Tramadol Hcl (TRAMADOL HCL) 50 Mg Tablet, 50 MG PO Q6H PRN for PAIN, #20 TAB 0 Refills Prov:AMADOR CORDOVA Katharina DO 01/06/19 Reported Medications Aspirin (ASPIRIN) 81 Mg Tab.chew, 81 MG PO QDAY, TAB.CHEW 02/12/19 Pantoprazole Sodium (PANTOPRAZOLE SODIUM) 40 Mg Tablet.dr, 40 MG PO QDAY, TAB.SR 01/06/19 Melatonin (MELATONIN) 5 Mg Tablet, 5 MG PO HS 01/06/19 Gabapentin (GABAPENTIN) 300 Mg Capsule, 200 MG PO BID, CAPSULE 01/06/19 Cholecalciferol (Vitamin D3) (VITAMIN D3) 1,000 Unit Tablet, 2000 UNIT PO DAILY, TAB 01/06/19 Sodium Bicarbonate (SODIUM BICARBONATE) 650 Mg Tablet, 1300 MG PO BID 01/06/19 Ropinirole Hcl (ROPINIROLE HCL) 3 Mg Tablet, 3 MG PO TID 01/06/19 Hydrocodone Bit/Acetaminophen (HYDROCODON-ACETAMINOPHEN 5-325) 1 Each Tablet, 1- 2 EACH PO Q4H PRN for PAIN, TAB 01/06/19 Discontinued Reported Medications Warfarin Sodium (WARFARIN SODIUM) 5 Mg Tablet, 5 MG PO QDAY, TAB 01/06/19 Allergies: Coded Allergies: oxycodone (Verified Allergy, Intermediate, Itching, 02/12/19) Hx Alcohol Use: No Review of Systems All Systems Reviewed/Normal: Yes, Except as Noted Neurological: Confusion, Weakness, Slurred Speech, Other (tingling in R fingers and foot) Exam Vital Signs Vital Signs Date Time Temp Pulse Resp B/P (MAP) Pulse Ox O2 Delivery O2 Flow Rate FiO2 7/16/19 00:05 70 93 02/13/19 00:00 145/101 (116) 02/12/19 21:59 23 02/12/19 20:34 2.0 02/12/19 20:12 97.9 Room Air General Appearance: Alert, Awake, No Acute Distress, Afebrile Neuro: Other (dilated L pupil (chronic), R sided ROM limited severely, CN 2-12 intact, no cerebellar signs but incomplete due to OA and ROM limitations) Cardiovascular: Normal Rhythm & Peripheral Pulses Respiratory: No Respiratory Distress GI: Abd Soft and Non-Tender Musculoskeletal: Other (strength 5/5 bilaterally, R leg limited by pain not strength) Extremities: Soft and Non Tender, Warm, Pulses, Perfused; No Edema Medical Decision Making Data Points Result Diagram: 02/12/19203302/12/192033 EKG / Imaging EKG Interpretation NSR w/ bifascicular block Monitor Interpretation: Normal Sinus Rhythm Assessment and Plan Problems: (1) Slurred speech Status: Acute Assessment & Plan: Some facial asymmetry at baseline due to trauma to L side. No new neurologic deficits, MRI and CT negative for acute pathology. No hypoglycemia. Possible effect of opioid analgesic due to delayed clearance of CKD. ECHO with bubble, carotid US, monitor on telemetry. Started on 325 ASA and statin. (2) OA (osteoarthritis) Status: Chronic Assessment & Plan: On opiate analgesics Tramadol and [place]. Will limit centrally acting medications. (3) CKD (chronic kidney disease) Status: Chronic Assessment & Plan: Unknown baseline but creatinine above 2 on all recent labs. Seeing sap bobj developer within next week. (4) Chronic pain Status: Chronic Assessment & Plan: As above. Venous Thromboembolism Antithrombotics Is Pt On Any Antithrombotics?: Yes Exam Sepsis Risk: No Definite Risk RUSSELL JOSE GROVER DO Feb 13, 2019 00:45
[2019-02-13] MEDS: ASPIRIN 325 MG TAB PO SCH ×2 (01:31→09:52)
[2019-02-13] MEDS: traMADol 50 MG TAB PO PRN ×2 (01:31→09:52)
[2019-02-13 03:09] VITALS: BP 151/82
[2019-02-13 06:47] VITALS: BP 140/87
--- NOTE | 2019-02-13 08:47 | NUR ---
Physical Therapy Impression PT/OT co eval complete. Pt reports urgent need to use restroom. Jovanni to pull to seated position at EOB. CGA for transfers and ambulation x20' with RW, pt declined further ambulation at this time. Pt will benefit from [facility] services upon d/c. Physical Therapy Goals 1: Pt to complete bed mobility with Familia 2: Pt to complete transfers with Familia and RW 3: Pt to ambulate 100' with SBA and RW 4: Pt to asc/desc 4 stairs with railing and SBA Patient's Goals
[2019-02-13] MEDS ORDERED: INSULIN HUM LISPRO 100 UN/ML 3 ML VIAL SUBQ PRN ×2 (08:50→11:05)
[2019-02-13] MEDS ORDERED: ENOXAPARIN 40 MG/0.4ML SYR SC SCH (09:00)
--- NOTE | 2019-02-13 09:47 | Medical Nutrition Therapy ---
Nutrition Anthropometrics Height (Inches): 76.00 Height (Calculated Centimeters: [phone] Weight (Pounds): 263 Weight (Calculated Kilograms): 119.295 BMI: 32 Guerrero Nutrition Score: Adequate Guerrero Nutrition Risk Score: 18 Dietary Referral Nutrition Risk Factors: Nutrition Risk Comment: Physical Findings Physical Appearance: Obese BMI 30-39 Skin Appearance Skin Appearance: Edema Edema Location Modifier: Edema Location: Type of Edema: Degree of Edema: Gastrointestinal Symptoms GI Symtoms: Tube Present: Bowel Sounds: Recent Bowel Pattern: Stool Characteristics: Nutritional Diagnosis Nutritional Risk Acuity 2: Chronic Renal Failure Nutritional Risk Acuity 3: Fair Appetite Past Medical History: hx CVA,CKD, T2DM Nutritional Acuity: 2-Moderate Nutrition Diagnosis: Decreased Nutrient Needs Nutrition Etiology: Physiological Causes Nutrition Problem/Etiology/Sym: Decreased protein, phos, K+, Na r/t dx CKD AEB BUN 35, creatinine 2.6, GR 23.8 Adjusted Energy Requirement Re: 2330 (HB adj for obesity) Protein Requirement: 83 (.7gm/kg AW) Fluid Requirement: 2330 (1ml/kcal) Diet Type: Diabetic Nutrition Intervention: Cont diet as ordered, Encourage intake Nutrition Monitoring & Eval Nutrition Goals: Eat 75-100% Meal RD Patient Assessment Time: [address] Assessment Type: RD Assessment Patient Nutrition Acuity: 2-Moderate Follow Up Date: Feb 16, 2019 Nutritional Comment: 02/13 Pt admitted for TIA. Pt has dx T2DM and on diabetic diet. Pt ate 50% of first meal in facility. Pt has hx of CVA with reported rt side weakness. Will monitor for s/s swallowing disordr. Alb 4, RBG 132, GFR 23.8, BUN 35, Creatinine 2.6. Pt is recieving insulin. Will cont to monitor and encourage intake. KARLA HUANG Feb 13, 2019 09:47
[2019-02-13 10:50] VITALS: BP 130/84
--- NOTE | 2019-02-13 11:02 | Hospitalist Progress Note ---
Subjective Progress Notes Subjective No acute changes overnight. Neurologic symptoms have improved. PT is no longer slurring speech, and is alert and oriented. Patient Complains of: Neurological: No: Confusion, Weakness, Slurred Speech Cardiovascular: No: Chest Pain, Palpitations Respiratory: No: Shortness of Breath Physical Exam Vital Signs Date Time Temp Pulse Resp B/P (MAP) Pulse Ox O2 Delivery O2 Flow Rate FiO2 02/13/19 10:50 97.7 61 24 130/84 (99) 95 Nasal Cannula 1.0 Intake and Output 02/13/19 01:02 Intake Total 1000 ml Balance 1000 ml IV Total 1000 ml General Appearance: Alert, Awake, No Acute Distress Neuro: No Gross deficits Cardiovascular: Regular Rate and Rhythm Respiratory: No Respiratory Distress Result Diagram: 02/12/19203302/12/192033 Monitor Interpretation: Normal Sinus Rhythm Assessment and Plan Problems: (1) Slurred speech Status: Acute Assessment & Plan: Some facial asymmetry at baseline due to trauma to L side. No new neurologic deficits, MRI and CT negative for acute pathology. No hypoglycemia. Possible effect of opioid analgesic due to delayed clearance of CKD. ECHO with bubble, carotid US to be done today. Continues on telemetry. On Aspirin. (2) OA (osteoarthritis) Status: Chronic Assessment & Plan: On opiate analgesics Tramadol and [place]. Limiting centrally acting medication. He seems to be tolerating pain levels on tramadol and Tylenol currently. . (3) CKD (chronic kidney disease) Status: Chronic Assessment & Plan: Unknown baseline but creatinine above 2 on all recent labs. Seeing radioactive waste disposal dispatcher within next week. (4) Chronic pain Status: Chronic Assessment & Plan: Pain medication as listed above. (5) Diabetes mellitus Status: Chronic Assessment & Plan: Patient has past treatment with Metformin. Pt states he is not currently taking at home. Creatinine level elevated. Will manage with ADA diet and SSI level 1. Exam Sepsis Risk: No Definite Risk ZACH BLACKMAN Feb 13, 2019 11:01
[2019-02-13 12:43] VITALS: BP 173/90
--- NOTE | 2019-02-13 13:07 | RADIOLOGY IMAGING REPORT ---
FACILITY: [facility] - [place] PATIENT NAME: Polo Villarreal : 1935 MR: [id number] V: [id number] EXAM DATE: ORDERING PHYSICIAN: JOSE GROVER TECHNOLOGIST: Location: [facility] [place] Patient: Polo Villarreal : 1935 Visit/Account:[id number] Date of Sevice: 02/13/2019 Carotid ultrasound Indication: TIA Comparison:None available Findings: On the right : Peak systolic velocity of the right common carotid artery is 84.5 cm/s Peak systolic velocity of the right internal carotid artery is 94.9 cm/s There is normal antegrade flow of the right vertebral artery. The right ICA/CCA ratio is 1.12 There is a trace amount of plaque present within the carotid bulb. On the left: Peak systolic velocity of the left common carotid artery is 64.9 cm/s Peak systolic velocity of the left internal carotid artery is 72.7 cm/s There is normal antegrade flow of the left vertebral artery. The left ICA/CCA ratio is 1.12 There is a trace amount of plaque present within the carotid bulb. IMPRESSION: 1. No hemodynamically significant stenosis of the bilateral common carotid arteries and bilateral int ernal carotid arteries as above. 2. there is no evidence of significant plaque within the carotid arteries. Report Dictated By: Immanuel Navarro at 02/13/2019 12:56 PM Report E-Signed By: Immanuel Navarro at 02/13/2019 12:59 PM WSN:[email or web address]
--- NOTE | 2019-02-13 14:49 | NUR ---
Occupational Therapy Impression Pt reports feeling improved. Min A supine to sit with HOB raised. CGA ambulation x20ft with RW. SBA toileting. Pt declined further functional mobility. Recommend HH OT at discharge and continued assist from family for IADLs. Occupational Therapy Goals 1) Pt will be Independent grooming standing sinkfront. 2) Pt will be Independent toilet task. Patient's Goal
[2019-02-13] MEDS ORDERED: GABA-488 PO (15:18)
[2019-02-13 15:39] VITALS: BP 168/97
--- NOTE | 2019-02-13 15:56 | Hospitalist Depart ---
Discharge Summary Reason for Hosp/Final Diag: (1) Slurred speech Status: Acute Hospital Course & Plan: He presented with slurred speech and confusion one hour after taking Linden. His symptoms completely resolved upon reaching the medical floor. He has some facial asymmetry due to past trauma to L side, chronic R. sided weakness, and pupil asymmetry; but no new neurologic deficits, MRI and CT negative for acute pathology. No hypoglycemia. Carotid US done 02/13 no acute findings. The official echo report is pending. Based on the history, symptoms and recovery; the weakness and confusion were from Linden ingestion. He was last given Linden in October by a provider [place]. He has been told to stop taking any Linden. (2) OA (osteoarthritis) Status: Chronic Hospital Course & Plan: Currently taking Tramadol for chronic pain. He seems to be tolerating current pain levels. Admission symptoms likely due to narcotic pain medicine, discontinuing Linden and remaining on tramadol. (3) CKD (chronic kidney disease) Status: Chronic Hospital Course & Plan: Unknown baseline but creatinine above 2 on all recent labs. Seeing curtain drier within next week. (4) Chronic pain Status: Chronic Hospital Course & Plan: Pain medication as listed above. (5) Diabetes mellitus Status: Chronic Hospital Course & Plan: Patient has past treatment with Metformin. Pt states he is not currently taking at home. Creatinine level elevated. Seeing Chartered Wealth Manager next week. His blood sugars ranged from 132 to 85, and did not receive any sliding scale coverage. Departure Weight (Pounds): 263 Weight (Ounces): 6.0 Result Diagram: 02/12/19203302/12/192033 Item Value Date Time Neutrophils (%) (Auto) 62.7 % 02/12/192033 Lymphocytes (%) (Auto) 20.5 % 02/12/192033 Monocytes (%) (Auto) 7.7 % 02/12/192033 Troponin I 0.020 ng/ml 02/12/192033 Imaging Carotid Artery Ultrasound 1. No hemodynamically significant stenosis of the bilateral common carotid arteries and bilateral internal carotid arteries as above. 2. there is no evidence of significant plaque within the carotid arteries. Echo Official results pending Brain MRI Unremarkable unenhanced MRI of the brain for age. No evidence of acute mass, stroke, or hemorrhage. Chest X-Ray No evidence of acute cardiopulmonary disease. Head CT 1. No CT evidence of acute intracranial pathology. 2. Moderate parenchymal atrophy with chronic small vessel ischemic change. EKG Vent. Rate : 077 BPM Atrial Rate : 077 BPM P-R Int : 206 ms QRS Dur : 164 ms QT Int : 420 ms P-R-T Axes : 042 -86 -03 degrees QTc Int : 475 ms Normal sinus rhythm Right bundle branch block Left anterior fascicular block Bifascicular block Septal infarct , age undetermined Abnormal ECG No previous ECGs available Confirmed by David Daley ([id number]) on 02/12/2019 9:27:52 PM Condition: Improved Discharge: Home, Self Care Discharge Instructions Home Meds Active Scripts Tramadol Hcl (TRAMADOL HCL) 50 Mg Tablet, 50 MG PO Q6H PRN for PAIN, #20 TAB 0 Refills Prov:AMADOR CORDOVA Katharina DO 01/06/19 Reported Medications Gabapentin (NEURONTIN) 100 Mg Capsule, 200 MG PO BID, CAPSULE 02/13/19 Aspirin (ASPIRIN) 81 Mg Tab.chew, 81 MG PO QDAY, TAB.CHEW 02/12/19 Pantoprazole Sodium (PANTOPRAZOLE SODIUM) 40 Mg Tablet.dr, 40 MG PO QDAY, TAB.SR 01/06/19 Melatonin (MELATONIN) 5 Mg Tablet, 5 MG PO HS 01/06/19 Cholecalciferol (Vitamin D3) (VITAMIN D3) 1,000 Unit Tablet, 2000 UNIT PO DAILY, TAB 01/06/19 Sodium Bicarbonate (SODIUM BICARBONATE) 650 Mg Tablet, 1300 MG PO BID 01/06/19 Ropinirole Hcl (ROPINIROLE HCL) 3 Mg Tablet, 3 MG PO TID 01/06/19 Discontinued Reported Medications Gabapentin (GABAPENTIN) 300 Mg Capsule, 200 MG PO BID, CAPSULE 01/06/19 Hydrocodone Bit/Acetaminophen (HYDROCODON-ACETAMINOPHEN 5-325) 1 Each Tablet, 1- 2 EACH PO Q4H PRN for PAIN, TAB 01/06/19 Warfarin Sodium (WARFARIN SODIUM) 5 Mg Tablet, 5 MG PO QDAY, TAB 01/06/19 Diet: Regular Activity: As Tolerated Special Instructions: Follow-up with PCP in 1-2 weeks and follow up with [employer] We[employer] Manager as previosly scheduled. Based on admitting symptoms, please do not take any more Linden. Return to ER for confusion or focal weakness. Copies to: CHARLENE HAILE MD; MICHAEL DAS MD ; Venous Thromboembolism Antithrombotics Is Pt On Any Antithrombotics?: Yes ZACH BLACKMAN Feb 13, 2019 15:56
--- NOTE | 2019-02-13 16:20 | NUR ---
Pt refused WBG monitoring Addendum: 02/13/19 at 1805 by KIMBERLY HEATH RN Amended: Links added.
[2019-02-13] MEDS ORDERED: ROSUVASTATIN CALCIUM 10 MG TAB PO SCH (21:00)
== END 2019-02-13 15:58 | disposition home or self-care (01) ==
LOC: ER 20:39 → MED 02-13 00:07 → INTOOBSV 02-13 00:07
PROVIDERS: ADMIT Internal Medicine; ATTEND Internal Medicine
DX: G45.9 Transient cerebral ischemic attack, unspecified (principal); M19.90 Unspecified osteoarthritis, unspecified site; N18.9 Chronic kidney disease, unspecified; E11.9 Type 2 diabetes mellitus without complications; G89.29 Other chronic pain
CPT/HCPCS: 36416; 70450; 70551; 71045; 82948; 84484; 85025; 85610; 85730; 93005; 93306; 93880; 96360; 96372; 97161; 97166; 99291; 99292; A9270; G0378; J1650; J3010; J7030; 82040; 82247; 82310; 82374; 82435; 82565; 82947; 84075; 84132; 84155; 84295; 84450; 84460; 84520; J7050; Q9967

== ENCOUNTER → 2019-02-12 | Outpatient (CLI) | payer MEDICARE, OTHER ==
[~2019-02-12] MED LIST changes: +ASPI81TA94 PO; +GABA-488 PO; -oxyCODON/ACET (*)5/325MG (CII) 1 TAB TAB PO ONE
== END ==
LOC: LAB 13:45
PROVIDERS: ATTEND Internal Medicine Nephrology
DX: N18.3 Chronic kidney disease, stage 3 (moderate) (principal); N25.81 Secondary hyperparathyroidism of renal origin; D63.1 Anemia in chronic kidney disease; I12.9 Hypertensive chronic kidney disease with stage 1 through stage 4 chronic kidney disease, or unspecified chronic kidney disease
CPT/HCPCS: 36415; 82040; 82310; 82330; 82374; 82435; 82565; 82947; 83036; 83970; 84100; 84132; 84295; 84520; 84550; 85018

== ENCOUNTER 2019-03-16 22:18 | Emergency (ER) | payer MEDICARE, OTHER, MEDICAID ==
[~2019-03-16 22:18] MED LIST changes: +ASPI81TA94 PO; +GABA-488 PO
--- NOTE | 2019-03-16 22:23 | ER Report ---
History and Physical Time Seen By MD: 22:19 HPI/ROS CHIEF COMPLAINT: Left flank pain. HISTORY OF PRESENT ILLNESS: 83-year-old male presents ambulatory to the ER complaining of left flank pain for 4-5 hours. It woke him from sleep. Patient has a history of a right nephrectomy for cancer. Patient says history of kidney stones. He notes no fever or chills. He notes nausea and vomiting. Patient describes the pain as 8/10 sharp in nature. Patient denies shortness of breath or chest pain. He denies fever or chills. Patient denies change in bowel habits or diarrhea. REVIEW OF SYSTEMS: Respiratory: No cough, no dyspnea. Cardiovascular: No chest pain, no palpitations. Gastrointestinal: As above Musculoskeletal: As above Allergies: Coded Allergies: oxycodone (Verified Allergy, Intermediate, Itching, 03/16/19) Home Meds Active Scripts Prednisone (PREDNISONE) 20 Mg Tablet, 20 MG PO QDAY for gout attack, #30 Take 2 tablets by mouth for 3 days, then 1 tablet by mouth for 3 days, repeat as necessary for Gout Prov:RAMEZ PEDERSON DO 03/17/19 Ondansetron 4 Mg Odt (ONDANSETRON 4 MG ODT) 4 Mg Tab.rapdis, 4 MG PO Q6H PRN for NAUSEA/VOMITING, #10 TAB Prov:RAMEZ PEDERSON DO 03/17/19 Hydrocodone Bit/Acetaminophen (HYDROCODON-ACETAMINOPHEN 5-325) 1 Each Tablet, 1 EACH PO Q4-6H PRN for PAIN, #12 TAKE ONE TABLET BY MOUTH EVERY 4-6 HOURS NEEDED FOR PAIN Prov:RAMEZ PEDESRON DO 03/17/19 Tramadol Hcl (TRAMADOL HCL) 50 Mg Tablet, 50 MG PO Q6H PRN for PAIN, #20 TAB 0 Refills Prov:AMADOR CORDOVA DO 01/06/19 Reported Medications Gabapentin (NEURONTIN) 100 Mg Capsule, 200 MG PO BID, CAPSULE 02/13/19 Aspirin (ASPIRIN) 81 Mg Tab.chew, 81 MG PO QDAY, TAB.CHEW 02/12/19 Pantoprazole Sodium (PANTOPRAZOLE SODIUM) 40 Mg Tablet.dr, 40 MG PO QDAY, TAB.SR 01/06/19 Melatonin (MELATONIN) 5 Mg Tablet, 5 MG PO HS 01/06/19 Cholecalciferol (Vitamin D3) (VITAMIN D3) 1,000 Unit Tablet, 2000 UNIT PO DAILY, TAB 01/06/19 Sodium Bicarbonate (SODIUM BICARBONATE) 650 Mg Tablet, 1300 MG PO BID 01/06/19 Ropinirole Hcl (ROPINIROLE HCL) 3 Mg Tablet, 3 MG PO TID 01/06/19 Reviewed Nurses Notes: Yes Old Medical Records Reviewed: Yes Hx Smoking: No Smoking Status: Never Smoker Hx Substance Use Disorder: No Hx Alcohol Use: No Constitutional Vital Sign - Last 24 Hours 03/16/19 03/16/19 03/16/19 03/16/19 22:33 23:18 23:23 23:33 Temp 98.0 Pulse 78 72 73 Resp 17 B/P (MAP) 146/115 162/93 (116) Pulse Ox 88 92 91 O2 Delivery Room Air 03/16/19 03/17/19 03/17/19 03/17/19 23:38 00:08 00:13 00:30 Pulse 70 65 64 B/P (MAP) 151/101 (118) Pulse Ox 92 94 93 03/17/19 03/17/19 03/17/19 03/17/19 00:43 01:00 01:05 01:10 Pulse 62 62 B/P (MAP) 160/99 (119) Pulse Ox 94 93 93 Physical Exam General Appearance: The patient is alert, has no immediate need for airway protection and no current signs of toxicity. Vital signs stable, afebrile, pulse ox normal HEENT: Pupils equal and round no injection. Oropharynx without redness or exudate, mucous members are moist Respiratory: Chest is non tender, lungs are clear to auscultation. No wheezing or rails Cardiac: regular rate and rhythm Gastrointestinal: Abdomen is soft and non tender, no masses, bowel sounds normal. Mild left CVA tenderness and mild left lower quadrant tenderness Musculoskeletal: Neck: Neck is supple and non tender. Extremities have full range of motion and are non tender. Skin: No rashes or lesions. DIFFERENTIAL DIAGNOSIS: After history and physical exam differential diagnosis was considered for flank pain including but not limited to musculoskeletal causes, kidney stone, pyelonephritis, shingles, and intra-abdominal causes such as diverticulitis and appendicitis. Additionally, ED abdominal pain. Differential Medical Decision Making Data Points Result Diagram: 03/16/19224903/16/192249 Laboratory Hematology Test 03/16/19 22:50 White Blood Count 9.1 k/uL (4.5-11.0) Red Blood Count 5.14 M/uL (4.00-5.60) Hemoglobin 14.2 g/dL (14.0-18.0) Hematocrit 42.2 % (42.0-52.0) Mean Corpuscular Volume 82.1 fL (80.0-96.0) Mean Corpuscular Hemoglobin 27.6 pg (26.0-33.0) Mean Corpuscular Hemoglobin Concent 33.7 g/dL (32.0-36.0) Red Cell Distribution Width 16.0 % (11.5-14.5) H Platelet Count 433 K/uL (150-450) Mean Platelet Volume 8.2 fL (7.2-11.1) Neutrophils (%) (Auto) 62.4 % (39.4-72.5) Lymphocytes (%) (Auto) 26.7 % (17.6-49.6) Monocytes (%) (Auto) 5.1 % (4.1-12.4) Eosinophils (%) (Auto) 4.8 % (0.4-6.7) Basophils (%) (Auto) 1.0 % (0.3-1.4) Nucleated RBC Relative Count (auto) 0.0 /100WBC Neutrophils # (Auto) 5.7 K/uL (2.0-7.4) Lymphocytes # (Auto) 2.4 K/uL (1.3-3.6) Monocytes # (Auto) 0.5 K/uL (0.3-1.0) Eosinophils # (Auto) 0.4 K/uL (0.0-0.5) Basophils # (Auto) 0.1 K/uL (0.0-0.1) Nucleated RBC Absolute Count (auto) 0.00 K/uL Chemistry Test 03/16/19 22:50 Sodium Level 138 mmol/L (137-145) Potassium Level 4.0 mmol/L (3.5-5.0) Chloride Level 106 mmol/L (98-107) Carbon Dioxide Level 22 mmol/L (22-30) Blood Urea Nitrogen 22 mg/dl (9-21) Creatinine 2.00 mg/dl (0.66-1.25) Glomerular Filtration Rate Calc 32.2 Random Glucose 181 mg/dl (75-110) Calcium Level 9.3 mg/dl (8.4-10.2) Total Bilirubin 0.5 mg/dl (0.2-1.3) Aspartate Amino Transf (AST/SGOT) 25 U/L (0-35) Alanine Aminotransferase (ALT/SGPT) 29 U/L (0-56) Alkaline Phosphatase 137 U/L (0-126) Total Protein 7.2 g/dl (6.3-8.2) Albumin 3.9 g/dl (3.5-5.0) Amylase Level 59 U/L (0-110) Lipase 28 U/L (23-300) Urinalysis Test 03/16/19 22:24 Urine Color Yellow Urine Clarity Clear Urine pH 6.0 pH (4.8-9.5) Urine Specific [place] 1.013 Urine Protein 30 mg/dL (NEGATIVE) Urine Glucose (UA) Negative mg/dL (NEGATIVE) Urine Ketones Negative mg/dL (NEGATIVE) Urine Blood Negative (NEGATIVE) Urine Nitrite Negative (NEGATIVE) Urine Bilirubin Negative (NEGATIVE) Urine Urobilinogen Negative mg/dL (0.2-1.9) Urine Leukocyte Esterase Negative (NEGATIVE) Urine RBC 1 /HPF (0-2/HPF) Urine WBC 1 /HPF (0-5/HPF) Urine Squamous Epithelial Cells None /LPF (</=FEW) Urine Bacteria Negative /HPF (NONE-FEW) Urine Mucus None /HPF (NONE-FEW) EKG/Imaging Imaging Results: CT scan of the abdomen and pelvis without contrast was obtained. The results of the study are CT of the abdomen and pelvis without contrast: Indication: Left flank pain. Technique: Helical CT was performed through the abdomen and pelvis without contrast. Multiplanar reconstructions are reviewed. One of the following dose optimization techniques was utilized in the performance of this exam: Automated exposure control; adjustment of the mA and/or kV according to the patient's size; or use of an iterative reconstruction technique. Specific details can be referenced in the facility's radiology CT exam operational policy. Comparison: 01/06/2019 Lower lung miramontes: There is linear parenchymal scarring in the right lower lobe. No acute parenchymal or pleural process is identified. Liver: Unremarkable and unchanged. Gallbladder/biliary tree: Within normal limits. Pancreas: Atrophic, but otherwise unremarkable. No acute findings. Spleen: Unremarkable and unchanged. Adrenal glands: Within normal limits. Kidneys/urinary bladder: There is persistent evidence of small nonobstructing calculi in the left kidney. The left kidney is otherwise unchanged. There are no definite signs of left ureteral calculus or obstruction. The right kidney is surgically absent. The bladder appears homogeneous and unremarkable. Intestinal structures: Unremarkable and unchanged. No evidence of obstruction or acute inflammatory changes. Pelvis: Prostate appears enlarged. Otherwise unremarkable. Aorta and vascular structures: There is chronic atherosclerotic calcification in the aorta and iliac arteries. There are no signs of aneurysm. Ascites or fluid collections: None seen. Skeletal structures: The right hip prosthesis is unchanged. There are chronic degenerative changes in the left hip and spine. There are extensive postoperative changes in the spine. No acute skeletal deformity is clearly identified. Impression: Small nonobstructing calculi are present in the left kidney. There are no signs of left ureteral calculus or obstruction. The study was read by the radiologist. I viewed the images myself on the PACS system. ED Course/Re-evaluation Clinical Indication for ER IV: Hydration, IV Access ED Course Patient was admitted to an examination room. H&P was done. The differential diagnoses was considered. On clinical examination. Patient has left flank pain and left lower abdominal pain. He also has chronic back pain. He said numerous back surgeries. Patient's evaluated with a peripheral IV. He is treated for his pain and vomiting. He is sent for CT scan which is unremarkable for obstructing stones. He does have several stones in the left kidney. His right kidney is absent. She'll be discharged home with medicine for his vomiting, pain control. He is given prednisone for swollen knee, which is likely gout flare. 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 H/O right nephrectomy Condition: Improved Disposition: HOME OR SELF-CARE Referrals: NASRA VALDEZ MD New Scripts Prednisone (PREDNISONE) 20 Mg Tablet 20 MG PO QDAY for gout attack, #30 Take 2 tablets by mouth for 3 days, then 1 tablet by mouth for 3 days, repeat as necessary for Gout Prov: RAMEZ PEDERSON DO 03/17/19 Ondansetron 4 Mg Odt (ONDANSETRON 4 MG ODT) 4 Mg Tab.rapdis 4 MG PO Q6H PRN for NAUSEA/VOMITING, #10 TAB Prov: RAMEZ PEDERSON DO 03/17/19 Hydrocodone Bit/Acetaminophen (HYDROCODON-ACETAMINOPHEN 5-325) 1 Each Tablet 1 EACH PO Q4-6H PRN for PAIN, #12 TAKE ONE TABLET BY MOUTH EVERY 4-6 HOURS NEEDED FOR PAIN Prov: RAMEZ PEDERSON DO 03/17/19 Patient Instructions: Degenerative Disc Disease (ED), Flank Pain (ED) Additional Instructions: Follow-up with Dr. Valdez next week Problem Qualifiers Additional Impressions: Degenerative arthritis of lumbar spine Spinal osteoarthritis complication: unspecified spinal osteoarthritis Qualified Codes: M47.816 - Spondylosis without myelopathy or radiculopathy, lumbar region RAMEZ PEDERSON DO Mar 16, 2019 22:23
[2019-03-16] MEDS ORDERED: ONDANSETRON 4 MG/2 ML VIAL IVP ONE (22:30)
[2019-03-16] MEDS ORDERED: fentaNYL CITR 100 MCG/2 ML AMP IVP ONE (22:30)
[2019-03-16] MEDS ORDERED: NS(*) 0.9% 1000 ML BAG 1,000 ML IV ONE (22:30)
[2019-03-16 23:10] LABS: PLATELET COUNT, AUTOMATED 433 K/uL (150-450)
--- NOTE | 2019-03-17 00:54 | RADIOLOGY IMAGING REPORT ---
FACILITY: [facility] - [place] PATIENT NAME: Polo Villarreal : 1935 MR: [id number] V: [id number] EXAM DATE: ORDERING PHYSICIAN: RAMEZ PEDERSON TECHNOLOGIST: Location: Patient: Polo Villarreal : 1935 Visit/Account:[id number] Date of Sevice: 03/16/2019 CT of the abdomen and pelvis without contrast: Indication: Left flank pain. Technique: Helical CT was performed through the abdomen and pelvis without contrast. Multiplanar rec onstructions are reviewed. One of the following dose optimization techniques was utilized in the performance of this exam: Autom ated exposure control; adjustment of the mA and/or kV according to the patient's size; or use of an i terative reconstruction technique. Specific details can be referenced in the facility's radiology CT exam operational policy. Comparison: 01/06/2019 Lower lung miramontes: There is linear parenchymal scarring in the right lower lobe. No acute parenchymal or pleural process is identified. Liver: Unremarkable and unchanged. Gallbladder/biliary tree: Within normal limits. Pancreas: Atrophic, but otherwise unremarkable. No acute findings. Spleen: Unremarkable and unchanged. Adrenal glands: Within normal limits. Kidneys/urinary bladder: There is persistent evidence of small nonobstructing calculi in the left kid kirby. The left kidney is otherwise unchanged. There are no definite signs of left ureteral calculus or obstruction. The right kidney is surgically absent. The bladder appears homogeneous and unremarkable. Intestinal structures: Unremarkable and unchanged. No evidence of obstruction or acute inflammatory c hanges. Pelvis: Prostate appears enlarged. Otherwise unremarkable. Aorta and vascular structures: There is chronic atherosclerotic calcification in the aorta and iliac arteries. There are no signs of aneurysm. Ascites or fluid collections: None seen. Skeletal structures: The right hip prosthesis is unchanged. There are chronic degenerative changes in the left hip and spine. There are extensive postoperative changes in the spine. No acute skeletal de formity is clearly identified. Impression: Small nonobstructing calculi are present in the left kidney. There are no signs of left u reteral calculus or obstruction. Report Dictated By: Evelio Guerrier MD at 03/17/2019 12:35 AM Report E-Signed By: Evelio Guerrier MD at 03/17/2019 12:46 AM WSN:[id number]
[2019-03-17 01:00] VITALS: BP 160/99
[2019-03-17] MEDS ORDERED: LOR5/325 PO (01:25)
[2019-03-17] MEDS ORDERED: ONDA4TAB9 PO (01:25)
[2019-03-17] MEDS ORDERED: PRED20TA6 PO (01:25)
[2019-03-17] MEDS ORDERED: ONDANSETRON 4 MG ODT TH SL ONE (01:30)
[2019-03-17] MEDS ORDERED: ACET/HYDROC 5/325MG TH ER ONLY 2 TAB/BOTTLE PO ONE (01:30)
[2019-03-20] MEDS ORDERED: CYCL10TA29 PO (15:47)
[2019-03-20] MEDS ORDERED: METF-450 PO (15:47)
== END 2019-03-17 01:39 | disposition home or self-care (01) ==
LOC: ER 22:40
DX: M47.816 Spondylosis without myelopathy or radiculopathy, lumbar region (principal)
CPT/HCPCS: 74176; 81001; 82150; 83690; 85025; 96360; 96361; 96374; 96375; 99284; J2405; J3010; J7030; Q0162; 82040; 82247; 82310; 82374; 82435; 82565; 82947; 84075; 84132; 84155; 84295; 84450; 84460; 84520; S0119

== ENCOUNTER 2019-03-22 14:10 | Emergency (ER) | payer MEDICARE, MEDICAID ==
--- NOTE | 2019-03-22 14:19 | ER Report ---
History and Physical Time Seen By MD: 14:15 HPI/ROS CHIEF COMPLAINT: dizziness HISTORY OF PRESENT ILLNESS: Patient is an 83 year old male presenting with dizziness that started this morning after he got out of bed. He felt unsteady and unbalanced, stated he couldn't stop from falling forward and did end up falling on the carpet but did not hit or hurt anything on his fall. He has a history of vertigo but states this dizziness is different. No new medications, drinks 4L water per day. States his BP was 160 SBP this morning and blood glucos e stick was 190. Hasn't taken anything for the dizziness. Denies lightheadedness, fever, blurry vision. Endorses extremity muscle weakness worse on the right REVIEW OF SYSTEMS: General: dizziness Respiratory: No cough, no dyspnea. Cardiovascular: No chest pain, no palpitations. Gastrointestinal: No vomiting, no abdominal pain. Musculoskeletal: No back pain. Allergies: Coded Allergies: oxycodone (Verified Allergy, Intermediate, Itching, 03/22/19) Home Meds Active Scripts Prednisone (PREDNISONE) 20 Mg Tablet, 20 MG PO QDAY for gout attack, #30 Take 2 tablets by mouth for 3 days, then 1 tablet by mouth for 3 days, repeat as necessary for Gout Prov:RAMEZ PEDERSON DO 03/17/19 Ondansetron 4 Mg Odt (ONDANSETRON 4 MG ODT) 4 Mg Tab.rapdis, 4 MG PO Q6H PRN for NAUSEA/VOMITING, #10 TAB Prov:RAMEZ PEDERSON DO 03/17/19 Hydrocodone Bit/Acetaminophen (HYDROCODON-ACETAMINOPHEN 5-325) 1 Each Tablet, 1 EACH PO Q4-6H PRN for PAIN, #12 TAKE ONE TABLET BY MOUTH EVERY 4-6 HOURS NEEDED FOR PAIN Prov:RAMEZ PEDERSON DO 03/17/19 Tramadol Hcl (TRAMADOL HCL) 50 Mg Tablet, 50 MG PO Q6H PRN for PAIN, #20 TAB 0 Refills Prov:AMADOR CORDOVA DO 01/06/19 Reported Medications Cyclobenzaprine Hcl (CYCLOBENZAPRINE HCL) 10 Mg Tablet, 10 MG PO TID, #9 TAB 03/20/19 Metformin Hcl (METFORMIN HCL) 500 Mg Tablet, 1 TAB PO BID, TAB 03/20/19 Gabapentin (NEURONTIN) 100 Mg Capsule, 200 MG PO BID, CAPSULE 02/13/19 Aspirin (ASPIRIN) 81 Mg Tab.chew, 81 MG PO QDAY, TAB.CHEW 02/12/19 Pantoprazole Sodium (PANTOPRAZOLE SODIUM) 40 Mg Tablet.dr, 40 MG PO QDAY, TAB.SR 01/06/19 Melatonin (MELATONIN) 5 Mg Tablet, 5 MG PO HS 01/06/19 Cholecalciferol (Vitamin D3) (VITAMIN D3) 1,000 Unit Tablet, 2000 UNIT PO DAILY, TAB 01/06/19 Sodium Bicarbonate (SODIUM BICARBONATE) 650 Mg Tablet, 1300 MG PO BID 01/06/19 Ropinirole Hcl (ROPINIROLE HCL) 3 Mg Tablet, 3 MG PO TID 01/06/19 Past Medical/Surgical History Past medical history of CVA, peptic ulcer, right kidney cancer, BPH, arthritis, glasses, heard of hearing bilateral, diabetes, pancreatic cancer Surgical history of right nephrectomy, pancreatic cancer removal, face and neck repair, pelvis repaired x2, artificial toe, left hip replacement, back surgery x8, eye surgery No past family history Reviewed Nurses Notes: Yes Hx Smoking: No Smoking Status: Never Smoker Hx Substance Use Disorder: No Hx Alcohol Use: No Constitutional Vital Sign - Last 24 Hours 03/22/19 03/22/19 03/22/19 03/22/19 14:11 14:18 14:30 14:40 Temp 98.5 Pulse 86 85 Resp 16 22 B/P (MAP) 158/90 (112) 158/90 127/91 (103) Pulse Ox 88 O2 Delivery Room Air 03/22/19 03/22/19 03/22/19 03/22/19 14:43 15:00 15:10 15:30 Pulse 76 Resp 23 B/P (MAP) 140/87 (104) 142/89 (106) Pulse Ox 92 O2 Flow Rate 2.0 03/22/19 03/22/19 03/22/19 03/22/19 15:35 16:00 16:05 16:30 Pulse 74 73 Resp 20 7 B/P (MAP) 148/96 (113) 169/103 (125) Pulse Ox 91 92 03/22/19 03/22/19 03/22/19 03/22/19 16:35 17:00 17:05 17:10 Pulse 68 67 67 Resp 8 21 23 B/P (MAP) 141/80 (100) Pulse Ox 92 93 90 8/22/19 8/22/19 8/22/19 8/22/19 17:30 18:30 18:40 18:45 Pulse 66 67 Resp 25 24 B/P (MAP) 167/104 (125) 159/108 (125) Pulse Ox 93 91 03/22/19 03/22/19 03/22/19 03/22/19 19:00 19:15 19:30 19:35 Pulse 70 71 70 70 Resp 15 19 14 12 B/P (MAP) 156/101 (119) 137/97 (110) Pulse Ox 92 94 93 91 03/22/19 03/22/19 03/22/19 03/22/19 19:50 20:00 20:05 20:20 Pulse 72 69 73 Resp 6 13 11 B/P (MAP) 144/79 (100) Pulse Ox 89 87 87 03/22/19 03/22/19 03/22/19 03/22/19 20:30 20:35 20:40 20:55 Pulse 70 72 78 Resp 11 30 28 B/P (MAP) 142/88 (106) Pulse Ox 90 85 95 03/22/19 03/22/19 21:00 21:10 Pulse 70 Resp 9 B/P (MAP) 133/92 (106) Pulse Ox 88 Physical Exam General Appearance: The patient is alert, has no immediate need for airway protection and no current signs of toxicity. Eyes: Pupils equal and round no injection, EOMI, red reflex present, vessels, disc and cup visualized without hemorrhage or cotton wool spots Respiratory: Chest is non tender, lungs are clear to auscultation. Cardiac: regular rate and rhythm Gastrointestinal: Abdomen is soft and non tender, no masses, bowel sounds normal. Musculoskeletal: Neck: Neck is supple and non tender. Extremities have full range of motion and are non tender. Skin: No rashes or lesions. 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 DIFFERENTIAL DIAGNOSIS: After history and physical exam differential diagnosis was considered for TIA, stroke, dehydration, hypoglycemia, hypotension, PE, [place], brain tumor Medical Decision Making Data Points Result Diagram: 03/22/19 1400 03/22/19 1400 Laboratory Hematology Test 03/22/19 14:00 White Blood Count 11.1 k/uL (4.5-11.0) H Red Blood Count 5.92 M/uL (4.00-5.60) H Hemoglobin 15.5 g/dL (14.0-18.0) Hematocrit 49.5 % (42.0-52.0) Mean Corpuscular Volume 83.6 fL (80.0-96.0) Mean Corpuscular Hemoglobin 26.2 pg (26.0-33.0) Mean Corpuscular Hemoglobin Concent 31.3 g/dL (32.0-36.0) L Red Cell Distribution Width 15.2 % (11.5-14.5) H Platelet Count 540 K/uL (150-450) H Mean Platelet Volume 10.2 fL (7.2-11.1) Neutrophils (%) (Auto) 66.9 % (39.4-72.5) Lymphocytes (%) (Auto) 22.3 % (17.6-49.6) Monocytes (%) (Auto) 7.5 % (4.1-12.4) Eosinophils (%) (Auto) 2.0 % (0.4-6.7) Basophils (%) (Auto) 0.8 % (0.3-1.4) Nucleated RBC Relative Count (auto) 0.0 /100WBC Neutrophils # (Auto) 7.4 K/uL (2.0-7.4) Lymphocytes # (Auto) 2.5 K/uL (1.3-3.6) Monocytes # (Auto) 0.8 K/uL (0.3-1.0) Eosinophils # (Auto) 0.2 K/uL (0.0-0.5) Basophils # (Auto) 0.1 K/uL (0.0-0.1) Nucleated RBC Absolute Count (auto) 0.00 K/uL Chemistry Test 03/22/19 14:00 Sodium Level 140 mmol/L (137-145) Potassium Level 3.7 mmol/L (3.5-5.0) Chloride Level 105 mmol/L (98-107) Carbon Dioxide Level 23 mmol/L (22-30) Blood Urea Nitrogen 25 mg/dl (9-21) Creatinine 2.10 mg/dl (0.66-1.25) Glomerular Filtration Rate Calc 30.5 Random Glucose 185 mg/dl (75-110) Calcium Level 9.7 mg/dl (8.4-10.2) Total Bilirubin 0.9 mg/dl (0.2-1.3) Aspartate Amino Transf (AST/SGOT) 25 U/L (0-35) Alanine Aminotransferase (ALT/SGPT) 27 U/L (0-56) Alkaline Phosphatase 149 U/L (0-126) Troponin I 0.041 ng/ml Total Protein 7.8 g/dl (6.3-8.2) Albumin 4.2 g/dl (3.5-5.0) Urinalysis Test 03/22/19 14:47 Urine Color Yellow Urine Clarity Clear Urine pH 7.0 pH (4.8-9.5) Urine Specific [place] 1.011 Urine Protein Negative mg/dL (NEGATIVE) Urine Glucose (UA) Negative mg/dL (NEGATIVE) Urine Ketones Negative mg/dL (NEGATIVE) Urine Blood Negative (NEGATIVE) Urine Nitrite Negative (NEGATIVE) Urine Bilirubin Negative (NEGATIVE) Urine Urobilinogen Negative mg/dL (0.2-1.9) Urine Leukocyte Esterase Negative (NEGATIVE) Urine RBC None /HPF (0-2/HPF) Urine WBC 1 /HPF (0-5/HPF) Urine Squamous Epithelial Cells None /LPF (</=FEW) Urine Bacteria Negative /HPF (NONE-FEW) Urine Mucus None /HPF (NONE-FEW) EKG/Imaging EKG Interpretation 12 lead EKG: Rhythm: normal sinus rhythm [place]: normal QRS: Bifascicular block ST segments: normal No change when compared to EKG done February 12, 2019 Imaging CHEST SINGLE AP INDICATION: dizziness COMPARISON: 02/12/2019 FINDINGS: Heart size within normal limits. There is no focal infiltrate or lobar consolidation. There is no pneumothorax or pleural effusion. IMPRESSION: 1. No acute cardiopulmonary process. Report Dictated By: Damian Ventura at 03/22/2019 3:08 PM Report E-Signed By: Damian Ventura at 03/22/2019 3:09 PM WSN:[email or web address] EXAMINATION: CT HEAD WITHOUT CONTRAST COMPARISON: 02/12/2019. HISTORY: dizziness PROCEDURE: Noncontrast CT from the vertex through the skull base. One of the following dose optimization techniques was utilized in the performance of this exam: Automated exposure control; adjustment of the mA and/or kV according to the patient's size; or use of an iterative reconstruction technique. Specific details can be referenced in the facility's radiology CT exam operational policy. FINDINGS: Brain volume: Mild/moderate atrophy as before. Hemorrhage/extra-axial fluid: None. Mass effect/midline shift/edema: None. Ischemia: Jerez-white differentiation is preserved. Ventricles and basal cisterns: Within normal limits. Posterior fossa: Negative. Vessels: Atherosclerosis. Calvarium, skull base, and scalp: Negative. Visualized sinuses and orbits: Chronic changes with no acute findings. IMPRESSION: 1. No intracranial hemorrhage or mass effect. 2. No CT findings of acute infarct. Report Dictated By: Clayton Payan MD at 03/22/2019 4:11 PM Report E-Signed By: Clayton Payan MD at 03/22/2019 4:18 PM WSN:[id number] EXAMINATION: MRI brain without IV contrast HISTORY: Weakness and dizziness COMPARISON: 02/12/2019 TECHNIQUE: Multi-planar, multi-sequence brain MRI was performed without IV contrast. FINDINGS: Brain: Ventricles and sulci are stable reflecting atrophy. Mild burden of T2 bright hemispheric and pontine white matter changes is stable. Sagittal midline structures: Normal. Acute ischemic changes: None. Hemorrhage: None. Masses/edema: None. Extra-axial: None. Calvarium/scalp: Negative. Skull base: Negative. Visualized sinuses/orbits: Bilateral cataract surgical changes. Visualized upper neck: Negative. IMPRESSION: 1. No acute or focal abnormalities. 2. Stable age-related and vascular changes as above. Report Dictated By: LANDEN LOWE at 03/22/2019 7:13 PM Report E-Signed By: LANDEN LOWE at 03/22/2019 7:20 PM WSN:[id number] PELVIS INDICATION: Chronic pain COMPARISON: CT 03/16/2019 FINDINGS: No evidence of fracture, dislocation, or acute osseous abnormality of the bones of the pelvis. There is a stable appearing right TKA. Lumbosacral fusion changes are noted. IMPRESSION: 1. No acute osseous abnormality of the pelvis Report Dictated By: Damian Ventura at 03/22/2019 8:11 PM Report E-Signed By: Damian Ventura at 03/22/2019 8:12 PM WSN:-[email or web address] ED Course/Re-evaluation ED Course Patient presented to the ED with dizziness that started this morning after he got out of bed. He was unable to keep his balance and fell forward. Does not complain of any pain or head injury from the fall. Denies vomiting or nausea but feels like the room is shifting in front of him. Physcial exam was benign other than some generalized nystagmus with eye movement. Patient had slight muscle weakness on the right upper extremity. Differential diagnoses were considered including vertigo and stroke. CBC, CMP, Troponin, UA, EKG, Chest XR, CT head, MRI head and pelvic x-ray were ordered due to pelvic pain that patient has been having. No acute abnormalities were discovered. Hospitalist Dr. Trejo was consulted for consideration of admission. Once stroke was ruled out patient had a positive [place] on the left. Patient was told about his diagnosis of BPPV and understood it was a self-limiting condition. Understood instructions to do the Raul Maneuver at home. Discharged. Decision to Disposition Date: Mar 22, 2019 Decision to Disposition Time: 21:07 Depart Departure Latest Vital Signs Vital Signs Date Time Temp Pulse Resp B/P (MAP) Pulse Ox O2 Delivery O2 Flow Rate FiO2 03/22/19 21:10 70 9 88 03/22/19 21:00 133/92 (106) 03/22/19 14:43 2.0 03/22/19 14:18 98.5 Room Air Impression: Primary Impression: BPPV (benign paroxysmal positional vertigo) Condition: Improved Disposition: HOME OR SELF-CARE Patient Instructions: Vertigo (ED) Additional Instructions: Follow instructions on how to do Raul maneuver at home. Perform several times per day until dizziness resolves. Follow up with primary care provider. Return to ED if dizziness suddenly worsens, non-stop vomiting or a fall occurs. Problem Qualifiers Primary Impression: BPPV (benign paroxysmal positional vertigo) Laterality: left Qualified Codes: H81.12 - Benign paroxysmal vertigo, left ear EVELYN PURCELL Mar 22, 2019 14:19
[2019-03-22] MEDS ORDERED: NS(*) 0.9% 500 ML BAG 500 ML IV ONE (14:45)
--- NOTE | 2019-03-22 15:11 | EKG ---
FACILITY: [facility] PATIENT NAME: KELLEY FAIRBANKS : [id number] MR: [id number] V: [id number] EXAM DATE: ORDERING PHYSICIAN: EVELYN PURCELL TECHNOLOGIST: Test Reason : Blood Pressure : / mmHG Vent. Rate : 083 BPM Atrial Rate : 083 BPM P-R Int : 190 ms QRS Dur : 162 ms QT Int : 440 ms P-R-T Axes : 031 -89 -10 degrees QTc Int : 517 ms Normal sinus rhythm Right bundle branch block Left anterior fascicular block Bifascicular block Abnormal ECG When compared with ECG of 12-FEB-2019 20:38, Criteria for Septal infarct are no longer present Confirmed by ANGEL ORELLANA ([id number]) on 03/23/2019 3:31:00 AM Referred By: Confirmed By:ANGEL ORELLANA
--- NOTE | 2019-03-22 15:19 | RADIOLOGY IMAGING REPORT ---
FACILITY: [facility] - [place], [place] PATIENT NAME: Polo Villarreal : 1935 MR: [id number] V: [id number] EXAM DATE: ORDERING PHYSICIAN: EVELNY PURCELL TECHNOLOGIST: Location: [facility] - [place] Patient: Polo Villarreal : 1935 Visit/Account:[id number] Date of Sevice: 03/22/2019 CHEST SINGLE AP INDICATION: dizziness COMPARISON: 02/12/2019 FINDINGS: Heart size within normal limits. There is no focal infiltrate or lobar consolidation. There is no pneumothorax or pleural effusion. IMPRESSION: 1. No acute cardiopulmonary process. Report Dictated By: Damian Ventura at 03/22/2019 3:08 PM Report E-Signed By: Damian Ventura at 03/22/2019 3:09 PM WSN:[email or web address]
[2019-03-22 15:24] LABS: PLATELET COUNT, AUTOMATED 540 K/uL (150-450)
--- NOTE | 2019-03-22 16:27 | RADIOLOGY IMAGING REPORT ---
FACILITY: [facility] - [place] PATIENT NAME: Polo Villarreal : 1935 MR: [id number] V: [id number] EXAM DATE: ORDERING PHYSICIAN: EVELYN PURCELL TECHNOLOGIST: [place] [facility] [place] Polo Villarreal : 1935 Visit/Account:[id number] Date of Sevice: 03/22/2019 EXAMINATION: CT HEAD WITHOUT CONTRAST COMPARISON: 02/12/2019. HISTORY: dizziness PROCEDURE: Noncontrast CT from the vertex through the skull base. One of the following dose optimizat ion techniques was utilized in the performance of this exam: Automated exposure control; adjustment o f the mA and/or kV according to the patient's size; or use of an iterative reconstruction technique. Specific details can be referenced in the facility's radiology CT exam operational policy. FINDINGS: Brain volume: Mild/moderate atrophy as before. Hemorrhage/extra-axial fluid: None. Mass effect/midline shift/edema: None. Ischemia: Jerez-white differentiation is preserved. Ventricles and basal cisterns: Within normal limits. Posterior fossa: Negative. Vessels: Atherosclerosis. Calvarium, skull base, and scalp: Negative. Visualized sinuses and orbits: Chronic changes with no acute findings. IMPRESSION: 1. No intracranial hemorrhage or mass effect. 2. No CT findings of acute infarct. Report Dictated By: Clayton Payan MD at 03/22/2019 4:11 PM Report E-Signed By: Clayton Payan MD at 03/22/2019 4:18 PM WSN:[id number]
--- NOTE | 2019-03-22 19:29 | RADIOLOGY IMAGING REPORT ---
FACILITY: [facility] - [place] PATIENT NAME: Polo Villarreal : 1935 MR: [id number] V: [id number] EXAM DATE: ORDERING PHYSICIAN: EVELYN PURCELL TECHNOLOGIST: Location: [facility] [place] Patient: Polo Villarreal : 1935 Visit/Account:[id number] Date of Sevice: 03/22/2019 EXAMINATION: MRI brain without IV contrast HISTORY: Weakness and dizziness COMPARISON: 02/12/2019 TECHNIQUE: Multi-planar, multi-sequence brain MRI was performed without IV contrast. FINDINGS: Brain: Ventricles and sulci are stable reflecting atrophy. Mild burden of T2 bright hemispheric and pontine white matter changes is stable. Sagittal midline structures: Normal. Acute ischemic changes: None. Hemorrhage: None. Masses/edema: None. Extra-axial: None. Calvarium/scalp: Negative. Skull base: Negative. Visualized sinuses/orbits: Bilateral cataract surgical changes. Visualized upper neck: Negative. IMPRESSION: 1. No acute or focal abnormalities. 2. Stable age-related and vascular changes as above. Report Dictated By: LANDEN LOWE at 03/22/2019 7:13 PM Report E-Signed By: LANDEN LOWE at 03/22/2019 7:20 PM WSN:[email or web address]
[2019-03-22] MEDS ORDERED: SCOPOLAMINE 1.5 MG PATCH TD ONE (19:45)
--- NOTE | 2019-03-22 20:20 | RADIOLOGY IMAGING REPORT ---
FACILITY: [facility] PATIENT NAME: Polo Villarreal : 1935 MR: [id number] V: [id number] EXAM DATE: ORDERING PHYSICIAN: EVELYN PURCELL TECHNOLOGIST: Location: [facility] - [place] Patient: Polo Villarreal : 1935 Visit/Account:[id number] Date of Sevice: 03/22/2019 PELVIS INDICATION: Chronic pain COMPARISON: CT 03/16/2019 FINDINGS: No evidence of fracture, dislocation, or acute osseous abnormality of the bones of the pelvis. There is a stable appearing right TKA. Lumbosacral fusion changes are noted. IMPRESSION: 1. No acute osseous abnormality of the pelvis Report Dictated By: Damian Ventura at 03/22/2019 8:11 PM Report E-Signed By: Damian Ventura at 03/22/2019 8:12 PM WSN:[email or web address]
[2019-03-22 21:00] VITALS: BP 133/92
== END 2019-03-22 21:28 | disposition home or self-care (01) ==
LOC: ER 14:16
DX: H81.12 Benign paroxysmal vertigo, left ear (principal)
CPT/HCPCS: 70450; 71045; 81001; 84484; 85025; 93005; 96360; 99284; A9270; J7040; 70551; 72170; 82040; 82247; 82310; 82374; 82435; 82565; 82947; 84075; 84132; 84155; 84295; 84450; 84460; 84520

== ENCOUNTER → 2019-03-22 | Outpatient (CLI) | payer MEDICARE, MEDICAID ==
[~2019-03-22] MED LIST changes: +CYCL10TA29 PO; +LOR5/325 PO; +METF-450 PO; +ONDA4TAB9 PO; +PRED20TA6 PO
== END ==
LOC: AMB 13:30
PROVIDERS: ATTEND Nurse Practitioner
DX: R42 Dizziness and giddiness (principal); R53.1 Weakness; M25.551 Pain in right hip; R53.83 Other fatigue
CPT/HCPCS: A0425; A0427